=== PATIENT | male | born 1980 | race Two or more races ===

== ENCOUNTER 2024-02-07 13:55 | Outpatient (AMB) | payer OTHER, SELFPAY ==
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
[2024-02-07 14:11] VITALS: BP 120/72; PULSE 64; O2SAT 98; BMI 22.2
== END 2024-02-07 15:24 | disposition home or self-care (01) ==
PROVIDERS: PCP Internal Medicine; Visit Provider Internal Medicine
DX: G81.90 Hemiplegia, unspecified affecting unspecified side (principal); F19.90 Other psychoactive substance use, unspecified, uncomplicated; I61.9 Nontraumatic intracerebral hemorrhage, unspecified; X95.9XXA Assault by unspecified firearm discharge, initial encounter
CPT/HCPCS: 99204

== ENCOUNTER 2024-03-28 15:21 | Outpatient (AMB) | payer OTHER, SELFPAY ==
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
[2024-03-28 15:37] VITALS: BP 134/76; PULSE 68; O2SAT 98; BMI 22.6
== END 2024-03-28 16:28 | disposition home or self-care (01) ==
PROVIDERS: PCP Internal Medicine; Visit Provider Internal Medicine
DX: G81.90 Hemiplegia, unspecified affecting unspecified side (principal)
CPT/HCPCS: 99214; G2211

== ENCOUNTER 2024-05-01 14:01 | Outpatient (AMB) | payer OTHER, SELFPAY ==
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
[2024-05-01 14:22] VITALS: BP 124/76; PULSE 68; O2SAT 98; BMI 23.0
== END 2024-05-01 15:12 | disposition home or self-care (01) ==
PROVIDERS: Visit Provider Internal Medicine
DX: Z00.00 Encounter for general adult medical examination without abnormal findings (principal); F19.90 Other psychoactive substance use, unspecified, uncomplicated; G81.90 Hemiplegia, unspecified affecting unspecified side; R49.0 Dysphonia
CPT/HCPCS: 99213; 99396

== ENCOUNTER 2024-05-10 10:15 | Outpatient (REF) | payer OTHER, SELFPAY ==
[2024-05-10 11:02] LABS: Hematocrit 41.9 % (42.0-52.0); Hemoglobin 13.8 g/dl (14.0-18.0); Mean Corpuscular HGB Conc 32.9 g/dl (31.0-36.0); Mean Corpuscular Hemoglobin 30.7 pg (27.0-33.0); Mean Corpuscular Volume 93.3 fL (80.0-98.0); Platelet Count 226 X10*3/uL (160-400); Red Blood Count 4.49 X10*6/uL (4.60-5.80); Red Cell Distribution Width 12.6 % (11.0-16.0); White Blood Count 7.1 X10*3/uL (4.8-10.8)
[2024-05-10 12:14] LABS: Alanine Aminotransferase 10 U/L (0-40); Albumin Level 4.7 g/dL (3.5-5.0); Alkaline Phosphatase 72 U/L (39-117); Anion Gap 12 (12-20); Aspartate Amino Transferase 14 U/L (5-37); Bilirubin Direct 0.1 mg/dL (0.0-0.5); Bilirubin Total 0.3 mg/dL (0.0-1.0); Blood Urea Nitrogen 12 mg/dL (9-16); Calcium 10.4 mg/dL (8.4-10.2); Carbon Dioxide 29 mmol/L (22-29); Chloride 104 mmol/L (96-108); Cholesterol 176 mg/dL (<200); Estimated Glomerular Filt Rate > 60; Glucose Random 89 mg/dL (60-115); HDL Cholesterol 39 mg/dL (>40); LDL Cholesterol Calculated 114 mg/dL (<100); Potassium 4.2 mmol/L (3.3-5.1); Sodium 141 mmol/L (135-145); Thyroid Stimulating Hormone 1.22 uIU/mL (0.32-4.0); Total Protein 8.4 g/dL (6.5-8.0); Triglycerides 116 mg/dL (<150)
== END 2024-05-10 10:16 | disposition home or self-care (01) ==
LOC: HO.LAB 10:15
PROVIDERS: PCP Internal Medicine; Visit Provider Internal Medicine
DX: I61.9 Nontraumatic intracerebral hemorrhage, unspecified (principal); G81.90 Hemiplegia, unspecified affecting unspecified side
CPT/HCPCS: 36415; 80048; 80061; 80076; 84443; 85027

== ENCOUNTER 2024-06-18 10:39 | Outpatient (AMB) | payer OTHER, SELFPAY ==
--- NOTE | 2024-06-18 11:27 | AM.OFFVISNUR ---
Intake Visit Reasons: TB implant Allergies Penicillins Allergy (Intermediate, Verified 05/03/24 07:30) Rash Office Meds tuberculin PPD 5 tub. unit/0.1 mL intradermal injection solution Performing Provider: Dave Pichardo MD [facility] Administered by: Marnie Martinez RN on 06/18/24 11:27 Dose Route Admin Location Dispensed Lot Number Expiration Date NDC Blood Bank Custodian 0.1 mL intradermal left forarm 0.1 mL [id number] 03/07/27 37698-718-14 [employer] Assessment & Plan Assessment & Plan Orders: Orders AMB PPD Planted Today Z11.1 - Encounter for screening for respiratory tuberculosis Medications: New tuberculin PPD 0.1 mL intradermal ONCE 0.1 mL 0RF Z11.1 - Encounter for screening for respiratory tuberculosis
== END 2024-06-18 11:29 | disposition home or self-care (01) ==
PROVIDERS: PCP Internal Medicine; Visit Provider Internal Medicine
DX: Z11.1 Encounter for screening for respiratory tuberculosis (principal)
CPT/HCPCS: 86580

== ENCOUNTER 2024-06-27 13:49 | Outpatient (AMB) | payer OTHER, SELFPAY ==
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
[2024-06-27 14:10] VITALS: BP 110/72; PULSE 57; O2SAT 99; BMI 24.2
== END 2024-06-27 14:59 | disposition home or self-care (01) ==
PROVIDERS: PCP Internal Medicine; Visit Provider Internal Medicine
DX: I61.9 Nontraumatic intracerebral hemorrhage, unspecified (principal); W34.00XA Accidental discharge from unspecified firearms or gun, initial encounter; F33.2 Major depressive disorder, recurrent severe without psychotic features

== ENCOUNTER 2024-06-27 13:49 | Outpatient (REF) | payer OTHER, SELFPAY ==
[2024-07-01 00:09] LABS: TS Negative Control Passed; TS Panel A 3; TS Panel B 0; TS Positive Control Passed; TSpotTB Negative (Negative)
== END 2024-06-27 13:50 | disposition home or self-care (01) ==
LOC: HO.LAB 13:49
PROVIDERS: PCP Internal Medicine; Visit Provider Internal Medicine
DX: Z02.0 Encounter for examination for admission to educational institution (principal)
CPT/HCPCS: 36415; 86481; 99212

== ENCOUNTER 2024-09-11 12:51 | Outpatient (RCR) | payer OTHER, SELFPAY ==
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
== END 2024-10-04 13:32 | disposition still patient (30) ==
LOC: HO.SH 12:51
PROVIDERS: Visit Provider Internal Medicine
DX: R49.0 Dysphonia (principal)

== ENCOUNTER 2024-10-17 10:26 | Outpatient (AMB) | payer OTHER, SELFPAY ==
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
[2024-10-17 11:00] VITALS: BP 130/70; PULSE 80; O2SAT 96; BMI 26.9
== END 2024-10-17 11:31 | disposition home or self-care (01) ==
PROVIDERS: PCP Internal Medicine; Visit Provider Internal Medicine
DX: I61.9 Nontraumatic intracerebral hemorrhage, unspecified (principal); W34.00XA Accidental discharge from unspecified firearms or gun, initial encounter

== ENCOUNTER → 2024-10-17 10:26 | Outpatient (BNVA) | payer OTHER, SELFPAY | PROVIDERS: PCP Internal Medicine; Visit Provider Internal Medicine | DX: Z86.73 Personal history of transient ischemic attack (TIA), and cerebral infarction without residual deficits (principal); W34.00XD Accidental discharge from unspecified firearms or gun, subsequent encounter | CPT/HCPCS: 96127; 99212 ==

== ENCOUNTER 2025-01-23 14:43 | Outpatient (AMB) | payer OTHER, SELFPAY ==
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
[2025-01-23 14:57] VITALS: BP 100/62; PULSE 72; TEMP 36.4; O2SAT 97; BMI 24.6
--- OUTSIDE RECORDS SUMMARY | 2025-01-23 17:36 | XMS_ITS | Clinical Summary ---
Author Organization [employer] Address [address] [facility] [facility] [address] [place] [address] Care Team Providers Care Booster Plant Operator Name Role Phone Unavailable Primary Care Provider Unavailabl e Social History Tobacco Use Types Packs/Day Years Used Date Smoking Tobacco: Never Assessed Sex and Gender Information Value Date Recorded Sex Assigned at Male 08/08/2022 10:40 AM EDT Legal Sex Male 10:40 AM EDT Gender Identity Male 08/08/2022 10:40 AM EDT Sexual Orientation Straight 08/08/2022 10 :40 AM EDT Plan of Treatment Health Maintenance Due Date Last Done Comments Depression Screening 1982 Lipid Panel 1982 Alcohol/Substance Use Screening 1994 Tobacco Screening 1994 Family Planning (PISQ) 1997 DTaP/Tdap/Td Vaccines (1 - Tdap) 2001 Hepatitis B Vaccines (1 of 3 - 19+ 3-dose series) 2001 COVID-19 Vaccine ( - 2023-2 5 season) 2024 11/24/2021, 03/06/2021, 02/13/2021 Influenza Vaccine (#1) 2024 Zoster Vaccines (1 of 2) 2032 RSV Patients and Patients Aged 60 years or older (1 - 1-dose 75+ series) 2057 HIB Vaccines Aged Out No longer eligi ble based on patient's age to complete this topic HPV Vaccines Aged Out No longer eligi ble based on patient's age to complete this topic Hepatitis A Vaccines Aged Out No long er eligible based on patient's age to complete this topic IPV Vaccines Aged Out No longer eligi ble based on patient's age to complete this topic Meningococcal Vaccine Aged Out No estee tad eligible based on patient's age to complete this topic Pneumococcal Vaccine: Pediatrics (0 to 5 Years) and At-Risk Patients (6 to 49) Years) Aged Out No longer eligible b ased on patient's age to complete this topic RSV under 20 months Aged Out No longe r eligible based on patient's age to complete this topic Rotavirus Vaccines Aged Out No longer eligible based on patient's age to complete this topic
--- OUTSIDE RECORDS SUMMARY | 2025-01-23 17:36 | XMS_ITS | Encounter Summary ---
Author Organization [facility] Address [address] [facility] [address] [place] [address] Care Team Providers Care Barrel Ribs Solderer Name Role Phone Unavailable Primary Care Provider Unavailabl e Reason for Visit * Reason Onset Date Comments Error 01/23/2024 Encounter Details Date Type Department Care Team ([facility] st Contact Info) Description 01/23/2024 Telephone [facility] MEDICINE [address] [place] [address] Leopoldo Lehman MD [address] [place] [address] Error Social History Tobacco Use Types Packs/Day Years Used Date Smoking Tobacco: Never Assessed Sex and Gender Information Value Date Recorded Sex Assigned at Male 08/08/2022 10:40 AM EDT Legal Sex Male 10:40 AM EDT Gender Identity Male 08/08/2022 10:40 AM EDT Sexual Orientation Straight 08/08/2022 10 :40 AM EDT documented as of this encounter Plan of Treatment Not on file documented as of this encounter Visit Diagnoses Not on filedocumented in this encounter
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
== END 2025-01-23 15:56 | disposition home or self-care (01) ==
LOC: HO.HMCH 14:43
PROVIDERS: PCP Internal Medicine; Visit Provider Internal Medicine
DX: G81.90 Hemiplegia, unspecified affecting unspecified side (principal); W34.00XA Accidental discharge from unspecified firearms or gun, initial encounter

== ENCOUNTER → 2025-01-23 14:43 | Outpatient (BNVA) | payer OTHER, SELFPAY | PROVIDERS: PCP Internal Medicine; Visit Provider Internal Medicine | DX: G40.909 Epilepsy, unspecified, not intractable, without status epilepticus (principal); G81.90 Hemiplegia, unspecified affecting unspecified side; Z79.899 Other long term (current) drug therapy | CPT/HCPCS: 99212 ==

== ENCOUNTER 2025-04-02 11:00 | Outpatient (RCR) | payer OTHER, SELFPAY ==
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
== END 2025-04-09 13:45 | disposition home or self-care (01) ==
LOC: HO.SH 11:00
PROVIDERS: Visit Provider Internal Medicine
DX: R49.0 Dysphonia (principal)
CPT/HCPCS: 92507

== ENCOUNTER 2025-08-07 14:13 | Outpatient (AMB) | payer OTHER, SELFPAY ==
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
[2025-08-07 14:24] VITALS: BP 100/62; PULSE 58; TEMP 36.2; O2SAT 96; BMI 22.3
--- OUTSIDE RECORDS SUMMARY | 2025-08-07 17:15 | XMS_ITS | Clinical Summary ---
Author Organization [address] [facility] Address [address] [place] [address] Phone Care Team Providers Care Benzene Washer Name Role Phone Sonali James MD Primary Care Provider [phone] Social History Tobacco Use Types Packs/Day Years Used Date Smoking Tobacco: Never Assessed Sex and Gender Information Value Date Recorded Sex Assigned at Male 01/30/2025 7:50 AM EDT Legal Sex Male 1:32 PM EST Gender Identity Male 01/30/2025 7:50 AM EDT Sexual Orientation Straight 01/30/2025 7: 50 AM EDT Plan of Treatment Health Maintenance Due Date Last Done Comments DTaP,Tdap,and Td Vaccines (1 - Tdap) 2001 Hepatitis B Vaccines (1 of 3 - 19+ 3-dose series) 2001 HPV Vaccines (1 - 3-dose SCD M series) 2009 Depression Screening 10/09/2024 Cholesterol Screening (Lipid Panel) 11/08/2024 HIV Screening 11/08/2024 Hepatitis C Screening 11/08/2024 Social Influencers of Health Screening 11/08/2024 COVID-19 Vaccine ( - 2023-2 5 season) 2025 Influenza Vaccine (#1) 2025 RSV Immunization Adult Patie nts (1 - 1-dose 75+ series) 2057 HIB [...] 5 Years) and At-Risk Patients (6 to 49 Years) Aged Out No longer eligible b ased on patient's age to complete this topic RSV Immunization Patients Un chevy 20 months Aged Out No longer eligible b ased on patient's age to complete this topic Varicella Vaccines Aged Out No longer eligible based on patient's age to complete this topic Goals Goal Patient Goal Type Associated Problems Recent Progress Patient-Stated? Author LTG 12-15 visits General Improving(05/2025 9:32 AM EDT) No Lanny Carmen, OT Note: 1> Indep HEP for ongoing inhand manip, fmc 04/15/25: pt cont's w/ vc's to remind use of RUE d/t longstanding reliance on LUE 2. R hand fmc via Box and Block improved to at least 36 (vs 29 init, vs 58 on non-dominant hand) 04/15/25 MET (1st trial 35, 2nd trial 40) 3.Pt will demo hand to mouth pattern w/ dominant R hand for utensil use (builtup prn) at least 50% of meals 04/15/25: Pt demo's this ability in clinic w/ standard fork, concedes that habit is to use LUE though has been drinking more w/ RUE lately 4. pt will demo ability to cut mod resistive food w/ R hand, AE prn 04/15/25 Met w/ rocker knife 5. Pt will engage R hand digits in phone use (swipe/text) 04/15/25: MET 6. Write name legibly <1 letters I.e. to sign name of forms/documents 04/15/25: pt reports focusing on L>R signature: L is now legible and <1 letters so that it fits on form Insurance [facility] Care Teams Benzene Washer Relationship Specialty Start Date End Date Sonali James MD [address] [facility] Physician Associ D/B/A: [facility] MIKE Robbins PCP - General Internal Medicine 12/25/24
--- OUTSIDE RECORDS SUMMARY | 2025-08-07 17:15 | XMS_ITS | Clinical Summary ---
Author Organization [employer] Address [address] [facility] [address] [place] [address] Care Team Providers Care Collection Analyst Name Role Phone Unavailable Primary Care Provider [...] Comments Depression Screening 1982 Lipid Panel 1982 Disability Screening 1982 Alcohol/Substance Use Screening 1994 Tobacco Screening 1994 Family Planning (PISQ) 1997 HPV Vaccines (1 - Male 3-dos e series) 1997 DTaP/Tdap/Td Vaccines (1 - Tdap) 2001 Hepatitis B Vaccines (1 of 3 - 19+ 3-dose series) 2001 COVID-19 Vaccine (4 - 2024-2 6 season) 2025 11/24/2021, 03/06/2021, 02/13/2021 Influenza Vaccine (#1) 2025 Zoster Vaccines (1 of 2) 2032 RSV [...] Years) and At-Risk Patients (6 to 49) Years Aged Out No longer eligible b ased on patient's age to complete this topic RSV under 20 months Aged Out No longe r eligible based on patient's age to complete this topic Rotavirus Vaccines Aged Out No longer eligible based on patient's age to complete this topic
--- OUTSIDE RECORDS SUMMARY | 2025-08-07 17:15 | XMS_ITS | Clinical Summary ---
Author Organization [facility] Address [address] [facility] [address] [place] [phone] Phone Care Team Providers Care Welder Machine Operator Name Role Phone Pcp, Unknown Primary Care Provider Unavailabl e Allergies No known active allergies Medications No known medications Social History Tobacco Use Types Packs/Day Years Used Date Smoking Tobacco: Never Assessed Education Answer Date Recorded Are you interested in more education? Not on yuli e 04/07/2025 Are you concerned about learning? Not on file 04/07/2025 No 04/07/2025 No 04/07/2025 Food Answer Date Recorded Within the past 6 months we worried whether our food would run out before we got money to buy more. Never True 04/07/2025 Within the past 6 months the food we bought just didn't last and we didn't have enough money to get more. Never True Residential Stability Answer Date Recor ded What is your housing situation today? I have ene sing 04/07/2025 How many times have you move d in the past 12 months? Zero (I did not move) 04/07/2025 Paying for Meds Answer Date Recorded Do you have trouble paying for medicines? No 04/07/2025 Paying Utility Bills Answer Date Record ed Do you have trouble paying your heating or elect ricity bill? No 04/07/2025 Transportation Answer Date Recorded Has the lack of transportati on kept you from medical appointments or from getting medications? No 04/07/2025 Digital Access Answer Date Recorded No 04/07/2025 Yes 04/07/2025 Do you have reliable internet access at home? Ye s 04/07/2025 Do you have a device (e.g., phone, tablet, computer) with a working camera? Yes 04/07/2025 Intimate Partner Violence Answer Date R ecorded Are you denied basic needs s uch as food, clothing, or medical care? No 04/07/2025 In the past 12 months have y ou been in a relationship with a person who hurts, threatens, or tries to control you? No 04/07/2025 Are you denied basic needs s uch as food, clothing, or medical care? No 04/07/2025 In the past 12 months have y ou been in a relationship with a person who hurts, threatens, or tries to control you? No 04/07/2025 Sex and Gender Information Value Date Recorded Sex Assigned at Male 04/07/2025 1:30 AM EDT Legal Sex Male 11:14 PM EDT Gender Identity Male 04/07/2025 1:30 AM EDT Sexual Orientation Straight 04/07/2025 1: 30 AM EDT Last Filed Vital Signs Vital Sign Reading Time Taken Comments Blood Pressure 129/68 04/07/2025 2:38 AM EDT Pulse 67 04/07/2025 2:38 AM EDT Temperature 35.6 C (96 F) 04/07/2025 2:37 AM EDT Respiratory Rate 18 04/07/2025 2:37 AM EDT Oxygen Saturation 100% 04/07/2025 2:38 AM EDT Inhaled Oxygen Concentration - - Weight - - Height - - Body Mass Index - - Plan of Treatment Health Maintenance Due Date Last Done Comments Adult Td,Tdap Booster 1982 LIPID PANEL 1982 DEPRESSION SCREENING 1994 SMOKING Hx and SMOKELESS TOB ACCO SCREENING 1995 HEPATITIS C SCREENING 2000 HIV ONE-TIME SCREENING (18-6 5 YEARS) 2000 INFLUENZA VACCINE (#1) 2025 COVID-19 VACCINE ( - 2024-2 6 season) 2025 HEPATITIS A VACCINES Aged Out No long er eligible based on patient's age to complete this topic HIB VACCINES Aged Out No longer eligi ble based on patient's age to complete this topic MENINGOCOCCAL VACCINES (ACWY) Aged Out No longer eligible based on patient's age to complete this topic MENINGOCOCCAL VACCINES (B) Aged Out N o longer eligible based on patient's age to complete this topic PNEUMOCOCCAL VACCINES (0-49 years) Aged Out No longer eligible based on patient's age to complete this topic Medical Devices Not on file Insurance [place] [place] [address] [address] [place] [address] [place] [address] [address] [place] [address] [address] [place] [address] [place] [address] [place] [address] ACO Care Teams Welder Machine Operator Relationship Specialty Start Date End Date Pcp, Unknown PCP - General 04/07/25 Additional Source Comments The information contained in this document represents components of the legal health record. It is not the complete legal health record.[facility]
--- OUTSIDE RECORDS SUMMARY | 2025-08-07 17:15 | XMS_ITS | Encounter Summary ---
Author Organization [employer] Address [address] [facility] 7 [place] [address] Care Team Providers Care Balcony Worker Name Role Phone Unavailable Primary Care Provider Unavailabl e Reason for Visit * Reason Onset Date Comments Error 01/23/2024 Encounter Details Date Type Department Care Team ([facility] st Contact Info) Description 01/23/2024 Telephone [facility] MEDICINE [address] [place] [address] Leopoldo Lehman MD [address] [place] [address] Error Social History Tobacco Use Types Packs/Day [...]
== END 2025-08-07 14:59 | disposition home or self-care (01) ==
LOC: HO.HMCH 14:13
PROVIDERS: PCP Internal Medicine; Visit Provider Internal Medicine
DX: G81.90 Hemiplegia, unspecified affecting unspecified side (principal)

== ENCOUNTER → 2025-08-07 14:13 | Outpatient (BNVA) | payer OTHER, SELFPAY | PROVIDERS: PCP Internal Medicine; Visit Provider Internal Medicine | DX: M25.551 Pain in right hip (principal); M79.661 Pain in right lower leg; G81.90 Hemiplegia, unspecified affecting unspecified side | CPT/HCPCS: 99212 ==

== ENCOUNTER 2025-08-12 11:46 | Outpatient (REF) | payer OTHER, SELFPAY ==
[2025-08-12 12:14] LABS: MANUAL DIFF FLAG NO
[2025-08-12 12:33] LABS: Hematocrit 36.2 % (42.0-52.0); Hemoglobin 11.8 g/dl (14.0-18.0); Imm Gran Abs Auto 0.02 X10*3/uL (0.00-0.03); Imm Gran Pct Auto 0.4 % (0.0-0.4); Lymphocytes Absolute Auto 2.0 X10*3/uL (1.2-4.9); Mean Corpuscular HGB Conc 32.6 g/dl (31.0-36.0); Mean Corpuscular Hemoglobin 31.0 pg (27.0-33.0); Mean Corpuscular Volume 95.0 fL (80.0-98.0); NRBC Abs Auto 0.000 X10*3/uL (0.0-0.012); NRBC Pct Auto 0.0 /100WBC (0.0-0.2); Platelet Count 181 X10*3/uL (160-400); Red Blood Count 3.81 X10*6/uL (4.60-5.80); White Blood Count 5.6 X10*3/uL (4.8-10.8)
[2025-08-12 12:35] LABS: Appearance Urine Clear; Glucose Urine UA Negative (Negative); PH 5.5 (5.0-9.0); Specific Gravity - Urine >= 1.030 (1.005-1.025)
[2025-08-12 13:20] LABS: Alanine Aminotransferase 15 U/L (0-40); Albumin Level 4.7 g/dL (3.5-5.0); Alkaline Phosphatase 70 U/L (39-117); Anion Gap 10 (12-20); Aspartate Amino Transferase 23 U/L (5-37); Blood Urea Nitrogen 15 mg/dL (9-16); Calcium 9.2 mg/dL (8.4-10.2); Carbon Dioxide 31 mmol/L (22-29); Chloride 105 mmol/L (96-108); Estimated Glomerular Filt Rate > 60; Potassium 4.1 mmol/L (3.3-5.1); Sodium 142 mmol/L (135-145); Total Protein 7.6 g/dL (6.5-8.0)
--- OUTSIDE RECORDS SUMMARY | 2025-08-12 14:34 | XMS_ITS | Clinical Summary ---
Author Organization [facility] Address [address] [facility] [address] [place] [address] Phone Care Team Providers Care Boat Garnisher Name Role Phone Pcp, Unknown Primary Care [...] topic Medical Devices Not on file [place] [address] [place] [address] [place] [address] [place] [address] [place] [address] [place] [place] [address] [place] [address] [place] [address] [place] [place] [address] ACO Care Teams Boat Garnisher Relationship Specialty Start Date End Date Pcp, Unknown PCP - General 04/07/25 Additional Source Comments The information contained in this document represents components of the legal health record. It is not the complete legal health record.[facility]
--- OUTSIDE RECORDS SUMMARY | 2025-08-12 14:34 | XMS_ITS | Encounter Summary ---
Author Organization [employer] Address [address] [facility] 7 [place] [address] Care Team Providers Care Core Winding Operator Name Role Phone Unavailable Primary Care Provider Unavailabl e Reason for Visit * Reason Onset Date Comments Error 01/23/2024 Encounter Details Date Type Department Care Team ([facility] st Contact Info) Description 01/23/2024 Telephone [facility] MEDICINE [address] [place] [address] Leopoldo Lehman MD [address] [place] [address] Error Social History Tobacco Use Types Packs/Day [...]
--- OUTSIDE RECORDS SUMMARY | 2025-08-12 14:34 | XMS_ITS | Clinical Summary ---
Author Organization [address] [facility] Address [address] [place] [address] Phone Care Team Providers Care Quick Print Operator Name Role Phone Sonali James MD Primary Care Provider [phone] Social History Tobacco Use Types Packs/Day Years [...] so that it fits on form Insurance [employer] [facility] Care Teams Quick Print Operator Relationship Specialty Start Date End Date Sonali James MD [address] [facility] , [address] [facility] MIKE Robbins PCP - General Internal Medicine 12/25/24
--- OUTSIDE RECORDS SUMMARY | 2025-08-12 14:34 | XMS_ITS | Clinical Summary ---
Author Organization [employer] Address [address] [facility] 7t [place] [address] Care Team Providers Care Lecturer In Marketing Name Role Phone Unavailable Primary Care Provider [...]
== END 2025-08-12 11:47 | disposition home or self-care (01) ==
LOC: HO.LAB 11:46
PROVIDERS: PCP Internal Medicine
DX: R63.4 Abnormal weight loss (principal)
CPT/HCPCS: 36415; 80053; 81003; 83036; 84443; 85025; 85652; 86141

== ENCOUNTER 2025-08-13 10:40 | Outpatient (AMB) | payer OTHER, SELFPAY ==
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
[2025-08-13 10:45] VITALS: BP 140/70; PULSE 55; TEMP 36.2; O2SAT 98; BMI 21.9
--- OUTSIDE RECORDS SUMMARY | 2025-08-13 12:27 | XMS_ITS | Encounter Summary ---
Author Organization [employer] Address [address] [facility] 7 [place] [address] Care Team Providers Care Pony Trimmer Name Role Phone Unavailable Primary Care Provider Unavailabl e Reason for Visit * Reason Onset Date Comments Error 01/23/2024 Encounter Details Date Type Department Care Team ([facility] st Contact Info) Description 01/23/2024 Telephone [facility] MEDICINE [address] [place] [address] Leopoldo Lehman MD [address] [place] [address] Error Social History Tobacco Use Types Packs/Day [...]
--- OUTSIDE RECORDS SUMMARY | 2025-08-13 12:27 | XMS_ITS | Clinical Summary ---
Author Organization [address] [facility] Address [address] [place] [address] Phone Care Team Providers Care Continuous Mining Machine Lode Miner Name Role Phone Sonali James MD Primary Care Provider [phone] Social History Tobacco Use Types Packs/Day Years [...] so that it fits on form Insurance [facility] [employer] Care Teams Continuous Mining Machine Lode Miner Relationship Specialty Start Date End Date Sonali James MD [address] [facility] , [address] [facility] D/B/A: [facility] MIKE Robbins PCP - General Internal Medicine 12/25/24
--- OUTSIDE RECORDS SUMMARY | 2025-08-13 12:27 | XMS_ITS | Clinical Summary ---
Author Organization [facility] Address [address] [facility] [address] [place] [address] Phone Care Team Providers Care Head Athletic Trainer Name Role Phone Pcp, Unknown Primary Care [...] topic Medical Devices Not on file [place] [address] [place] [address] [place] [address] [place] [address] [place] [address] [place] [address] [place] [address] [place] [address] [place] [address] [place] [address] [place] [address] [place] [address] ACO Care Teams Head Athletic Trainer Relationship Specialty Start Date End Date Pcp, Unknown PCP - General 04/07/25 Additional Source Comments The information contained in this document represents components of the legal health record. It is not the complete legal health record.[facility]
--- OUTSIDE RECORDS SUMMARY | 2025-08-13 12:27 | XMS_ITS | Clinical Summary ---
Author Organization [employer] Address [address] [facility] 7t [place] [address] Care Team Providers Care Executive Asst Name Role Phone Unavailable Primary Care Provider [...]
== END 2025-08-13 11:14 | disposition home or self-care (01) ==
LOC: HO.HMCH 10:41
PROVIDERS: PCP Internal Medicine; Visit Provider Internal Medicine
DX: I61.9 Nontraumatic intracerebral hemorrhage, unspecified (principal)

== ENCOUNTER → 2025-08-13 10:40 | Outpatient (BNVA) | payer OTHER, SELFPAY | PROVIDERS: PCP Internal Medicine; Visit Provider Internal Medicine | DX: I61.9 Nontraumatic intracerebral hemorrhage, unspecified (principal) | CPT/HCPCS: 99212 ==

== ENCOUNTER 2025-10-08 09:46 | Outpatient (AMB) | payer OTHER, SELFPAY ==
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
[2025-10-08 10:14] VITALS: BP 130/70; PULSE 69; TEMP 36.3; O2SAT 99; BMI 22.5
--- OUTSIDE RECORDS SUMMARY | 2025-10-08 10:25 | XMS_ITS | Encounter Summary ---
Author Organization [employer] Address [address] [facility] 7 [place] [address] Care Team Providers Care Afternoon Babysitter Name Role Phone Unavailable Primary Care Provider Unavailabl e Reason for Visit * Reason Onset Date Comments Error 01/23/2024 Encounter Details Date Type Department Care Team ([facility] st Contact Info) Description 01/23/2024 Telephone [facility] MEDICINE [address] [place] [address] Leopoldo Lehman MD [address] [place] [address] Error Social History Tobacco Use Types Packs/Day [...]
--- OUTSIDE RECORDS SUMMARY | 2025-10-08 10:25 | XMS_ITS | Clinical Summary ---
Author Organization [facility] Address [address] [facility] [address] [place] [address] Phone Care Team Providers Care Data Capture Specialist Name Role Phone Pcp, Unknown Primary Care [...] is your housing situation today? I have nee sing 04/07/2025 How many times have you [...] topic Medical Devices Not on file [place] [address] [address] [place] [address] [place] [address] [address] [place] [address] [place] [address] [place] [address] [place] [address] [address] [place] [address] [place] [address] [address] [place] [address] [place] [address] [address] ACO Care Teams Data Capture Specialist Relationship Specialty Start Date End Date Pcp, Unknown PCP - General 04/07/25 Additional Source Comments The information contained in this document represents components of the legal health record. It is not the complete legal health record.[facility]
--- OUTSIDE RECORDS SUMMARY | 2025-10-08 10:25 | XMS_ITS | Clinical Summary ---
Author Organization [employer] Address [address] [facility] 7t [place] [address] Care Team Providers Care Bathhouse Attendant Name Role Phone Unavailable Primary Care Provider [...]
--- OUTSIDE RECORDS SUMMARY | 2025-10-08 10:25 | XMS_ITS | Clinical Summary ---
Author Organization [address] [facility] Address [address] [place] [address] Phone Care Team Providers Care Wreath Machine Tender Name Role Phone Sonali James MD Primary Care Provider [phone] Social History Tobacco Use Types Packs/Day Years [...] Health Screening 11/08/2024 COVID-19 Vaccine ( - 2024-2 6 season) 2025 Influenza Vaccine (#1) 2025 RSV [...] so that it fits on form Insurance [facility] Care Teams Wreath Machine Tender Relationship Specialty Start Date End Date Sonali James MD [address] [facility] , [address] [facility]ician [facility] D/B/A: [facility] MIKE Robbins PCP - General Internal Medicine 12/25/24
== END 2025-10-08 10:52 | disposition home or self-care (01) ==
LOC: HO.HMCH 09:47
PROVIDERS: PCP Internal Medicine; Visit Provider Internal Medicine
DX: Z00.00 Encounter for general adult medical examination without abnormal findings (principal)

== ENCOUNTER → 2025-10-08 09:46 | Outpatient (BNVA) | payer OTHER, SELFPAY | PROVIDERS: PCP Internal Medicine; Visit Provider Internal Medicine | DX: Z00.00 Encounter for general adult medical examination without abnormal findings (principal); R20.2 Paresthesia of skin; R52 Pain, unspecified; F33.2 Major depressive disorder, recurrent severe without psychotic features; F11.20 Opioid dependence, uncomplicated; G40.909 Epilepsy, unspecified, not intractable, without status epilepticus; Z87.820 Personal history of traumatic brain injury; Z79.899 Other long term (current) drug therapy; Z87.891 Personal history of nicotine dependence | CPT/HCPCS: 99396 ==